=== PATIENT | female | born 1965 | race Caucasian/White ===

== ENCOUNTER 2016-09-06 22:24 | Emergency (ER) | payer MEDICAID ==
--- NOTE | 2016-09-06 22:30 | ED Physician Chart ---
Chief Complaint/HPI - Patient Information Date Seen:: 09/06/16 Time Seen:: 22:25 Chief Complaint:: EtOH intoxication History of Present Illness:: 50-year-old female with acute, moderate, constant, alcohol intoxication since about one hour prior to relative the ER. Patient apparently walked up to the fire station and asked them for a ride home. 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 She has associated slightly uncooperative behavior. Denies nausea, vomiting, chest pain, palpitations, pain, numbness, tingling. Historian:: Patient, EMS Review:: Nurse's Note Reviewed, EMS run form Reviewed Review of Systems - Review of Systems Other: Complete system review otherwise unremarkable except as noted in history of present illness. Past Medical History - Past Medical History Past Medical History: No significant medical hx Family History: None Social History: Non Smoker, Alcohol, No Drug Use, Employed Surgical History: None Psychiatricy History: None Medication: None Family Medical History - Family Member Mother History Unknown: Yes Physical Exam - Physical Examination Other:: INITIAL VITAL SIGNS: Reviewed by me GENERAL: Alert and interactive. No acute distress HEAD: Head is normocephalic and atraumatic EYES: EOMI. PERRL. No scleral icterus. No conjunctival injection ENT: Moist mucous membranes. NECK: Supple. No masses. Full range of motion RESPIRATORY: No tachypnea. Clear breath sounds bilaterally. No wheezing, rales, or rhonchi CV: Regular rate and rhythm. No murmurs, rubs, or gallops ABDOMEN: Soft, non-distended, non-tender. No guarding. No rebound. No masses. EXTREMITIES: No deformity. No cyanosis. No edema. SKIN: Warm and dry. No obvious rashes. NEUROLOGIC: Alert and oriented. Face is symmetric. Speech is normal. Moves all extremities equally. Motor and sensory distally intact. ED Septic Shock - . Is Septic Shock (SBP<90, OR Lactate>4 mmol\L) present?: No Reassessment (Disposition) - Reassessment Reassessment:: Patient apparently has been drinking alcohol and went to the fire station and asked him for a ride home. [employer] they called the paramedics and sent her here for evaluation. This patient arrived alert and oriented 4. She is slightly uncooperative but after a few minutes becomes more cooperative. She has no acute abnormalities. She can walk to and from the restroom without any acute abnormality. She was able to call a friend who eventually picked her up. Patient discharged. Follow up with primary care within 2 days. Return to ER precautions given. Patient says she understands and agrees with plan. Reassessment Condition:: Improved - Diagnosis Diagnosis:: Acute EtOH intoxication - Aftercare/Follow up Instructions Aftercare/Follow-Up Instructions:: Counseled pt regarding lab results/diagnosis & need follow up, Refer to Discharge Instructions - Patient Disposition Discharge/Transfer:: Home Time:: 22:31 Condition at Disposition:: Improved ED Discharge Plan - Patient Disposition Admit/Discharge/Transfer: PT DISCHARGED HOME Condition at Disposition: Improved Instructions: Alcohol Intoxication
== END 2016-09-06 23:00 | disposition home or self-care (01) ==
LOC: ER 22:24
DX: F10.129 Alcohol abuse with intoxication, unspecified (principal)
CPT/HCPCS: Z7502

== ENCOUNTER 2017-02-13 23:57 | Emergency (ER) | payer MEDICAID ==
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
== END 2017-02-14 00:38 | disposition left against medical advice (07) ==
LOC: ER 23:57
DX: T50.905A Adverse effect of unspecified drugs, medicaments and biological substances, initial encounter (principal); Y92.89 Other specified places as the place of occurrence of the external cause
CPT/HCPCS: Z7502